=== PATIENT | male | born 1985 | race American Indian/Alaskan Native ===

== ENCOUNTER 2017-04-03 15:34 | Emergency (ER) | payer OTHER ==
[2017-04-03 16:11] VITALS: BP 126/85
[2017-04-03] MEDS ORDERED: BSS ONE (16:11)
[2017-04-03] MEDS ORDERED: TETRACAINE 0.5% OU ONE (16:11)
[2017-04-03] MEDS ORDERED: TETRACAINE 0.5% ONE (16:11)
[2017-04-03] MEDS ORDERED: BSS OU ONE (16:11)
[2017-04-03] MEDS ORDERED: FUL-GLO OP ONE ×2 (16:11)
[2017-04-03] MEDS ORDERED: NACL 0.9% 1000 ML 2,000 ML IR ONE (16:12)
[2017-04-03] MEDS ORDERED: NACL 0.9% 1000 ML 1,000 ML ONE ×2 (16:12→16:15)
[2017-04-03 17:44] LABS: Basophils % (Auto) 0.6 % (0.0-1.8); Eosinophils % (Auto) 0.7 % (0.0-4.3); Hematocrit 46.7 % (35.5-45.6); Hemoglobin 15.3 gm/dl (11.8-15.2); Mean Corpuscular HGB Conc 33 % (32-34); Mean Corpuscular Hemoglobin 29 pg (28-32); Mean Corpuscular Volume 88 fl (84-94); Platelet Count 206 K/mm3 (140-440); Red Blood Count 5.29 M/mm3 (3.65-5.03); Red Cell Distribution Width 12.8 % (13.2-15.2); White Blood Count 6.8 K/mm3 (4.5-11.0)
[2017-04-03 17:52] LABS: Anion Gap 17 mmol/L; BUN/Creatinine Ratio 17.77; Blood Urea Nitrogen 16 mg/dL (9-20); Calcium 9.6 mg/dL (8.4-10.2); Carbon Dioxide 30 mmol/L (22-30); Chloride 95.3 mmol/L (98-107); Glucose 110 mg/dL (75-100); Potassium 4.3 mmol/L (3.6-5.0); Sodium 138 mmol/L (137-145)
--- NOTE | 2017-04-03 17:52 | Emergency Department Report ---
ED Eye Problem HPI - General Chief complaint: Eye Problems Stated complaint: CHEMICAL IN EYES/WORK RELATED Time Seen by Provider: 04/03/17 16:44 Source: patient Mode of arrival: Stretcher Limitations: No Limitations - History of Present Illness Initial comments: She was working with glacial acetic acid. Apparently he had residual chemical on his gloves. He states he rubbed both eyes and developed eye burning. He denies any loss of vision. He does have some photophobia. chief complaint: eye pain, eye redness, eye injury -: Gradual Onset Description: gradual Location: both eyes Place: home If Injury: none Eye Symptoms: burning Severity: moderate If Pain, Quality: burning Consistency: constant Associated Symptoms: none Treatments Prior to Arrival: none - Related Data Patient Tetanus UTD: No Previous Rx's Medication Instructions Recorded Last Taken Type HYDROcodone/APAP 5-325 [[place] 1 each PO Q4HR PRN #7 tablet 04/03/17 Unknown Rx 5/325] Sulfacetamide Sod 10% [Bleph 10] 1 drops OU 4XD #1 bottle 04/03/17 Unknown Rx Allergies Allergy/AdvReac Type Severity Reaction Status Date / Time No Known Allergies Allergy Unverified 04/03/17 16:04 ED Review of Systems ROS: Stated complaint: CHEMICAL IN EYES/WORK RELATED Other details as noted in HPI Comment: All other systems reviewed and negative Eyes: denies: eye discharge, vision change ED Past Medical Hx - Past Medical History Hx Seizures: Yes (at 9yrs old) - Surgical History Past Surgical History?: No - Social History Smoking Status: Never Smoker Substance Use Type: None - Medications Home Medications: Home Medications Medication Instructions Recorded Confirmed Last Taken Type HYDROcodone/APAP 5-325 [[place] 1 each PO Q4HR PRN #7 tablet 04/03/17 Unknown Rx 5/325] Sulfacetamide Sod 10% [Bleph 10] 1 drops OU 4XD #1 bottle 04/03/17 Unknown Rx ED Physical Exam - General Limitations: No Limitations General appearance: alert, in no apparent distress - Head Head exam: Present: atraumatic, normocephalic - Eye Eye exam: Present: PERRL, EOMI, conjunctival injection, other (fluoroscein negative). Absent: scleral icterus - ENT ENT exam: Present: normal exam, mucous membranes moist - Neck Neck exam: Present: normal inspection. Absent: tenderness, meningismus - Respiratory Respiratory exam: Present: normal lung sounds bilaterally. Absent: respiratory distress - Cardiovascular Cardiovascular Exam: Present: regular rate, normal rhythm. Absent: systolic murmur, diastolic murmur, rubs, gallop - GI/Abdominal GI/Abdominal exam: Present: soft, normal bowel sounds. Absent: distended, tenderness, guarding, rebound, rigid - Rectal Rectal exam: Present: deferred - Extremities Exam Extremities exam: Present: normal inspection - Back Exam Back exam: Present: normal inspection - Neurological Exam Neurological exam: Present: alert, oriented X3, CN II-XII intact. Absent: motor sensory deficit - Psychiatric Psychiatric exam: Present: normal affect, normal mood - Skin Skin exam: Present: warm, dry, intact, normal color. Absent: rash ED Course Vital Signs 04/03/17 04/03/17 04/03/17 15:50 15:56 15:58 Temperature 98.2 F 98.2 F Pulse Rate 101 H 101 H Respiratory 18 18 18 Rate Blood Pressure 126/85 Blood Pressure 126/85 [Left] O2 Sat by Pulse 99 99 99 Oximetry - Reevaluation(s) Reevaluation #1: Duc lens, irrigation. Patient states sx improved. 04/03/17 18:08 ED Medical Decision Making - Lab Data Result diagrams: 04/03/17 17:04 04/03/17 17:04 Laboratory Results - last 24 hr 04/03/17 04/03/17 17:04 17:04 WBC 6.8 RBC 5.29 H Hgb 15.3 H Hct 46.7 H MCV 88 MCH 29 MCHC 33 RDW 12.8 L Plt Count 206 Lymph % (Auto) 17.7 [place] % (Auto) 8.4 H Eos % (Auto) 0.7 Baso % (Auto) 0.6 Lymph # 1.2 [place] # 0.6 Eos # 0.0 Baso # 0.0 Seg Neutrophils % 72.6 H Seg Neutrophils # 5.0 Sodium 138 Potassium 4.3 Chloride 95.3 L Carbon Dioxide 30 Anion Gap 17 BUN 16 Creatinine 0.9 Estimated GFR > 60 BUN/Creatinine Ratio 17.77 Glucose 110 H Calcium 9.6 Critical care attestation.: If time is entered above; I have spent that time in minutes in the direct care of this critically ill patient, excluding procedure time. ED Disposition Clinical Impression: Chemical conjunctivitis of both eyes Disposition: DC- TO HOME OR SELFCARE Is pt being admited?: No Does the pt Need Aspirin: No Condition: Stable Instructions: Chemical Eye Be (ED) Additional Instructions: Follow-up with agricultural produce washer. Do not rub eyes. Rx for pain and eyedrops to prevent infection. Prescriptions: HYDROcodone/APAP 5-325 [[place] 5/325] 1 each PO Q4HR PRN #7 tablet PRN Reason: Pain Sulfacetamide Sod 10% [Bleph 10] 1 drops OU 4XD #1 bottle Referrals: PRIMARY CARE, [Primary Care Provider] - 3-5 Days Time of Disposition: 18:15
== END 2017-04-03 19:15 | disposition home or self-care (01) ==
LOC: ED 15:34
DX: H10.213 Acute toxic conjunctivitis, bilateral (principal)
CPT/HCPCS: 36415; 80048; 85025; 99284; J7030